=== PATIENT | male | born 2005 | race Caucasian/White ===

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

== ENCOUNTER 2024-01-02 14:35 | Emergency (ER) | payer SELFPAY ==
--- OUTSIDE RECORDS SUMMARY | 2024-01-02 14:38 | XMS REPORT | Continuity of Care Document ---
Author Name Unknown Address [address] [place] [address] [facility] thconnect Address [address] [place] [address] Care Team Providers Care Sheet Rock Layer Name Role Phone KOMAL CAREY Primary Care Physician Unav ailKOMAL De Los Santos Attending Clinician Unavail able Lab, Hakan Collins Attending Clinician Unavailable Komal Carey MD Attending Clinician [phone] Alana Francis PA-C Attending Clinician [phone] ALANA FRANCIS Attending Clinician Unavailab AMBAR Darden Attending Clinician Unavail able Payers Payer Name Policy Type Policy Number Effective Date Expirati on Date Source [facility] [id number] 2020 00:00:00 [place] [place] [id number] 2020 00:00:00 Allergies, Adverse Reactions, Alerts Allergy Name Allergy Type Status Severity Reaction(s) Onset Date Inactive Date Treating Clinician Comments Source NO KNOWN ALLERGIE S Drug Class Active [facility] Encounters Start Date/Time End Date/Time Encounter Type Admission Type Attending Clinicians Care Facility Care Department Encounter ID Source 2021-05-29 13:00:00 2021-05-29 13:00:00 Outpatient KOMAL GARCIA [facility] [id number] [facility] 2020-08-29 08:23:48 2020-08-29 08:38:48 Label Remover Visit Lab, Hakan Collins [facility] [id number] 2020-08-29 08:30:00 2020-08-29 08:30:00 Outpatient R [facility] [id number] [facility] 2020-08-27 00:00:00 2020-08-27 00:00:00 Komal Noel [facility] [id number] 2020-05-13 09:20:00 2020-05-13 09:20:00 Outpatient KOMAL GARCIA [facility] [id number] [facility] 2020-05-06 13:31:12 2020-05-06 15:33:09 Office Visit Alana Francis [facility] [id number] 2020-05-06 13:50:00 2020-05-06 13:50:00 Outpatient ALANA SWEENEY [facility] [id number] [facility] 2020-04-23 00:00:00 2020-04-23 00:00:00 Outpatient Peña GREER [facility] [id number] [facility] 2020-04-22 13:20:00 2020-04-22 13:20:00 Outpatient Peña GREER [facility] [id number] [facility] 2020-03-19 08:40:00 2020-03-19 08:40:00 Outpatient KOMAL GARCIA [facility] [id number] [facility]
[2024-01-02 18:02] LABS: Absolute Eosinophils 0.1 K/uL (0-0.5); Absolute Lymphocytes (CBC) 1.9 K/uL (0.7-4.9); Absolute Monocytes 0.5 K/uL (0.1-1.3); Absolute Neutrophil 4.6 K/uL (1.8-8.0); Basophils % 0.4 % (0-1.3); Eosinophils % 0.9 % (0-4.4); Hematocrit 41.5 % (39.6-49.0); Hemoglobin 14.4 g/dL (13.6-17.9); Lymphocytes % 26.1 % (15.3-44.8); MCHC 34.7 g/dL (32.0-36.0); MCV 86.5 fL (80-100); MPV 7.6 fL (7.6-11.3); Monocytes % 7.1 % (3.3-12.3); Neutrophils % 65.5 % (41.7-73.7); Nucleated Red Blood Cells % 0.1 % (0-0); Platelets 267 thou/uL (152-406); RBC Red Blood Cell Count 4.79 M/uL (4.33-5.43); Red Cell Distribution Width 13.5 % (12.1-15.2)
[2024-01-02 18:21] LABS: Anion Gap 6.6 mEq/L (5.0-15.0); Magnesium 2.3 mg/dL (1.6-2.4); Potassium 3.6 mEq/L (3.5-5.1); Troponin High Sensitivity 3.8 pg/mL (<58.9)
--- NOTE | 2024-01-02 18:47 | RAD REPORT ---
EXAM DESCRIPTION: CT - Head Brain Wo Cont - 01/02/2024 6:23 pm CLINICAL HISTORY: HEADACHE COMPARISON: Head angio dated 01/02/2024 TECHNIQUE: Noncontrast head CT images were obtained without IV contrast. Multiplanar reformats were generated and reviewed. All CT scans are performed using dose optimization technique as appropriate and may include automated exposure control or mA/KV adjustment according to patient size. FINDINGS: No intracranial hemorrhage, mass, or edema. Midline structures are unremarkable. Normal ventricular caliber for age. Estrada-white matter differentiation is preserved, without evidence of acute infarct. No abnormal extra- axial fluid collections. Mastoid air cells and visualized portions of the paranasal sinuses are clear. No acute bony findings. IMPRESSION: No evidence of an acute intracranial process.
[2024-01-02] MEDS ORDERED: DIPHENHYDRAMINE 50 MG/ML VIAL ONE (18:52)
[2024-01-02] MEDS ORDERED: METOCLOPRAMIDE 10 MG/2mL INJ ONE (18:52)
[2024-01-02] MEDS ORDERED: NA CHLORIDE 0.9% 1,000 ML ONE (18:52)
--- NOTE | 2024-01-02 18:53 | RAD REPORT ---
EXAM DESCRIPTION: CT - Head angio - 01/02/2024 6:24 pm CLINICAL HISTORY: MIGRAINE, FAMILY HX OF ANURYSYM COMPARISON: Head Brain Wo Cont dated 01/02/2024 TECHNIQUE: Axial CT angiography images of the head was performed with multiplanar and maximum intens ity projection reconstructions. Images performed following intravenous administration of iodinated c ontrast. All CT scans are performed using dose optimization technique as appropriate and may include automated exposure control or mA/KV adjustment according to patient size. FINDINGS: No evidence of large vessel occlusion. No evidence of aneurysm or dissection flap is detec russell. No flow-limiting stenosis or vascular malformation identified. Antegrade flow is seen in the vertebral arteries. The vertebral arteries are codominant. The visualized dural venous sinuses are grossly patent. IMPRESSION: No evidence of large vessel occlusion or flow-limiting stenosis.
[2024-01-02] MEDS ORDERED: KETOROLAC 30 MG/ML INJ ONE (19:23)
--- NOTE | 2024-01-02 20:15 | ER ---
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 Coronavirus screen: headache. Ebola Screen: Patient denies travel to an Ebola-affected area in the 21 days before illness onset. Initial Sepsis Screen: Does the patient meet any 2 criteria? No. Patient's initial sepsis screen is negative. Does the patient have a suspected source of infection? No. Patient's initial sepsis screen is negative. Risk Assessment: Do you want to hurt yourself or someone else? Patient reports no desire to harm self or others. Onset of symptoms was December 2023. 15:09 Acuity: LISETTE 3 aa5 15:09 Method Of Arrival: Ambulatory aa5 Historical: - Allergies: 15:10 No Known Allergies; aa5 - PMHx: 15:09 angina pectoris; Bipolar disorder; kidney disease; aa5 - Immunization history:: Adult Immunizations unknown. - Infectious Disease History:: Denies. - Social history:: Smoking status: Reported history of juuling and/or vaping. Screenin:16 [facility] ED Fall Risk Assessment (Adult) History of falling in the last 3 months, hb including since admission No falls in past 3 months (0 pts) Confusion or Disorientation No (0 pts) Intoxicated or Sedated No (0 pts) Impaired Gait No (0 pts) Mobility Assist Device Used No (0 pt) Altered Elimination No (0 pt) Score/Fall Risk Level 0 - 2 = Low Risk Oriented to surroundings, Maintained a safe environment, Educated pt \T\ family on fall prevention, incl call for assistance when getting out of bed. Abuse screen: Denies threats or abuse. Denies injuries from another. Nutritional screening: No deficits noted. Tuberculosis screening: No symptoms or risk factors identified. Assessment: 17:30 General: Appears in no apparent distress. Behavior is calm, cooperative. Pain: Pain hb currently is 6 out of 10 on a pain scale. Neuro: Level of Consciousness is awake, alert, obeys commands, Oriented to person, place, time, situation, Reports headache. Cardiovascular: Patient's skin is warm and dry. Respiratory: Respiratory effort is even, unlabored, Respiratory pattern is regular, symmetrical. GI: No signs and/or symptoms were reported involving the gastrointestinal system. : No signs and/or symptoms were reported regarding the genitourinary system. EENT: No signs and/or symptoms were reported regarding the EENT system. Derm: Skin is pink, warm \T\ dry. Musculoskeletal: No signs and/or symptoms reported regarding the musculoskeletal system. 18:16 Reassessment: Patient appears in no apparent distress at this time. Patient and/or hb family updated on plan of care and expected duration. Pain level reassessed. Patient is alert, oriented x 3, equal unlabored respirations, skin warm/dry/pink. 19:05 Reassessment: Patient and/or family updated on plan of care and expected duration. Pain pc2 level reassessed. Patient is alert, oriented x 3, equal unlabored respirations, skin warm/dry/pink. Pain: Pain currently is 7 out of 10 on a pain scale. Neuro: Level of Consciousness is awake, alert, obeys commands, Oriented to person, place, time, situation, Reports headache frontal area. 19:05 Cardiovascular: Patient's skin is warm and dry. Respiratory: Airway is patent pc2 Respiratory effort is even, unlabored, Respiratory pattern is regular, symmetrical. GI: No signs and/or symptoms were reported involving the gastrointestinal system. : No signs and/or symptoms were reported regarding the genitourinary system. EENT: No signs and/or symptoms were reported regarding the EENT system. Derm: Skin is pink, warm \T\ dry. Musculoskeletal: No signs and/or symptoms reported regarding the musculoskeletal system. 20:30 Reassessment: Patient and/or family updated on plan of care and expected duration. Pain pc2 level reassessed. Patient states feeling better. Patient states symptoms have improved. Pain: Pain currently is 1 out of 10 on a pain scale. Vital Signs: 15:09 BP 137 / 83; Pulse 73; Resp 16 S; Temp 97.5(TE); Pulse Ox 100% on R/A; Weight 77.11 kg aa5 (R); Height 6 ft. 0 in. (R); 20:31 BP 124 / 81; Pulse 70; Resp 16; Pulse Ox 100% on R/A; pc2 15:09 Body Mass Index 23.06 (77.11 kg, 182.88 cm) - Percentile 53.0 % aa5 ED Course: 14:39 Patient arrived in ED. ra3 15:08 Arm band placed on. aa5 15:10 Triage completed. aa5 16:24 Brian Rodriguez PA is PHCP. cp 16:24 Lucy Corrales MD is Attending Physician. cp 17:26 Lucy Corrales MD is Attending Physician. sd2 17:54 Sofia Gutiérrez, KAMILA is Primary Nurse. hb 18:01 Inserted saline lock: 20 gauge in right antecubital area, using aseptic technique. cc6 Blood collected. Flushed with 10 mL NS. 18:16 Patient has correct armband on for positive identification. Bed in low position. Call hb light in reach. Provided Education on: tests, result times. 18:16 No provider procedures requiring assistance completed. hb 18:25 CT Head Brain wo Cont In Process Unspecified. EDMS 18:26 Head angio In Process Unspecified. EDMS 19:10 Attending Physician role handed off by Lucy Corrales MD rt 19:10 Michael Theodore MD is Attending Physician. rt 20:15 Johnathon Ham MD is Referral Physician. rt 20:31 IV discontinued, intact, bleeding controlled, No redness/swelling at site. Pressure pc2 dressing applied. Administered Medications: 19:04 Drug: metoCLOPramide IVP 10 mg IVP once; over 1 to 2 minutes Route: IVP; Site: right hb antecubital; 19:31 Follow up: Response: No adverse reaction pc2 19:04 Drug: diphenhydrAMINE IVP 25 mg IVP once Route: IVP; Site: right antecubital; hb 19:31 Follow up: Response: No adverse reaction pc2 19:04 Drug: NS 0.9% IV 1000 ml IV at 1 bolus Per protocol; 1000 mL bolus Route: IV; Rate: 1 hb bolus; Site: right antecubital; 20:22 Follow up: Response: No adverse reaction; IV Status: Infusion continued; IV Intake: pc2 1000ml 19:31 Drug: Ketorolac IVP 15 mg IVP once Route: IVP; Site: right antecubital; pc2 20:23 Follow up: Response: No adverse reaction; Pain is decreased pc2 Medication: 18:16 VIS not applicable for this client. hb Intake: 20:22 IV: 1000ml; Total: 1000ml. pc2 Outcome: 20:15 Discharge ordered by . rt 20:31 Discharged to home ambulatory, with family, pc2 20:31 Condition: stable 20:31 Discharge instructions given to patient, Instructed on discharge instructions, follow up and referral plans. medication usage, Demonstrated understanding of instructions, follow-up care, medications, Prescriptions given X 1, 20:31 Patient left the ED. pc2 Signatures: Dispatcher [employer] EDMS Tracee Bo, RN RN aa5 Brian Rodriguez PA PA cp Baxter, Heather, RN RN Lucy Corrales MD MD sd2 Michael Theodore MD MD rt Laura Kirk ra3 Lacie Velasquez, RN RN pc2 Isabel Enriquez cc6
--- NOTE | 2024-01-02 20:15 | EDPHYS ---
Physician Documentation [facility] Name: Kong David Age: 18 yrs Sex: Male : 2005 Arrival Date: 01/02/2024 Time: 14:35 Bed 11 Private MD: ED Physician Michael Theodore HPI: 01/01 18:55 This 18 yrs old Male presents to ER via Ambulatory with complaints of Migraine x2days. sd2 18:55 18-year-old male presents with chief complaint of headache for the past 2 days. He sd2 reports a history of headaches in the past that are usually relieved with mrox-[id number]-[id number] medications such as Excedrin. He reports that he works at the [employer] and has been working outside in the heat but has been hydrating extremely well without improvement of his symptoms. He has never been seen or worked up for his headaches in the past but has a strong family history on his mother side of migraines as well as aneurysms which is what he is now concerned about. He does endorse some associated nausea. Denies photophobia or phonophobia. His headache is mostly located to the top of his head and he states it radiates down the back of his neck intermittently.. Historical: - Allergies: 15:10 No Known Allergies; aa5 - PMHx: 15:09 angina pectoris; Bipolar disorder; kidney disease; aa5 - Immunization history:: Adult Immunizations unknown. - Infectious Disease History:: Denies. - Social history:: Smoking status: Reported history of juuling and/or vaping. ROS: 18:55 Constitutional: Negative for fever, chills, and weight loss, Eyes: Negative for injury, sd2 pain, redness, and discharge, Cardiovascular: Negative for chest pain, palpitations, and edema, Respiratory: Negative for shortness of breath, cough, wheezing. Abdomen/GI: Negative for abdominal pain, nausea, vomiting, diarrhea. MS/Extremity: Negative for injury and deformity, Skin: Negative for injury, rash, and discoloration, Neuro: Positive for headache. Negative for numbness and tingling. Exam: 18:55 Constitutional: This is a well developed, well nourished patient who is awake, alert, sd2 and in no acute distress. Head/Face: Normocephalic, atraumatic. Eyes: EOMI, normal conjunctiva bilaterally Chest/axilla: Normal chest wall appearance and motion. Nontender with no deformity. Cardiovascular: Regular rate and rhythm with a normal S1 and S2. No gallops, murmurs, or rubs. 2+ distal pulses. Respiratory: Lungs have equal breath sounds bilaterally, clear to auscultation and percussion. No rales, rhonchi or wheezes noted. No increased work of breathing, no retractions or nasal flaring. Abdomen/GI: Soft, non-tender, with normal bowel sounds. No guarding or rebound. No evidence of tenderness throughout. Skin: Warm, dry with normal turgor. Normal color with no rashes, no lesions, and no evidence of cellulitis. MS/ Extremity: Pulses equal, no cyanosis. Neurovascular intact. Full, normal range of motion. Neuro: Awake and alert, GCS 15, oriented to person, place, time, and situation. Cranial nerves II-XII grossly intact. Motor strength 5/5 in all extremities. Sensory grossly intact. Cerebellar exam normal. Normal gait. Psych: Awake, alert, with orientation to person, place and time. Behavior, mood, and affect are within normal limits. Vital Signs: 15:09 BP 137 / 83; Pulse 73; Resp 16 S; Temp 97.5(TE); Pulse Ox 100% on R/A; Weight 77.11 kg aa5 (R); Height 6 ft. 0 in. (R); 20:31 BP 124 / 81; Pulse 70; Resp 16; Pulse Ox 100% on R/A; pc2 15:09 Body Mass Index 23.06 (77.11 kg, 182.88 cm) - Percentile 53.0 % aa5 MDM: 16:25 Patient medically screened. cp 18:55 Differential Diagnosis tension SKY, migraine SKY, aneurysm, ICH among others. Data sd2 reviewed: vital signs, nurses notes, lab test result(s), radiologic studies. I considered the following discharge prescriptions or medication management in the emergency department Medications were administered in the Emergency Department. See MAR. Historians other than the Patient: Spouse/Significant Other: Guru at . Counseling: I had a detailed discussion with the patient and/or guardian regarding the historical points, exam findings, and any diagnostic results supporting the discharge/admit diagnosis, lab results, radiology results, the need for outpatient follow up, to return to the emergency department if symptoms worsen or persist or if there are any questions or concerns that arise at home. ED course: CTA head with no signs of aneurysm at this time. No focal neuro deficits on exam. SKY meds given. Pending re-evaluation with improvement for disposition home. Advised follow up with PCP and neurology. . 20:15 ED course: Assumed care at shift change. Patient with significantly improving headache. rt Reviewed results of CT scans, unremarkable. Stable for outpatient care, return precautions discussed.. 01/01 16:25 Order name: Basic Metabolic Panel; Complete Time: 18:45 cp 01/01 16:25 Order name: CBC with Diff; Complete Time: 18:45 cp 01/01 16:25 Order name: Magnesium; Complete Time: 18:45 cp 01/01 16:25 Order name: Troponin HS; Complete Time: 18:45 cp 01/01 16:25 Order name: CK; Complete Time: 18:45 cp 01/01 17:46 Order name: CT Head Brain wo Cont; Complete Time: 18:54 sd2 01/01 18:01 Order name: Head angio; Complete Time: 18:54 EDMS 01/01 16:25 Order name: EKG - Nurse/Tech; Complete Time: 18:17 cp 01/01 16:25 Order name: IV Saline Lock; Complete Time: 18:01 cp 01/01 16:25 Order name: Labs collected and sent; Complete Time: 18:01 cp 01/01 16:25 Order name: O2 Per Protocol; Complete Time: 17:54 cp 01/01 16:25 Order name: O2 Sat Monitoring; Complete Time: 17:54 cp Administered Medications: 19:04 Drug: metoCLOPramide IVP 10 mg IVP once; over 1 to 2 minutes Route: IVP; Site: right hb antecubital; 19:31 Follow up: Response: No adverse reaction pc2 19:04 Drug: diphenhydrAMINE IVP 25 mg IVP once Route: IVP; Site: right antecubital; hb 19:31 Follow up: Response: No adverse reaction pc2 19:04 Drug: NS 0.9% IV 1000 ml IV at 1 bolus Per protocol; 1000 mL bolus Route: IV; Rate: 1 hb bolus; Site: right antecubital; 20:22 Follow up: Response: No adverse reaction; IV Status: Infusion continued; IV Intake: pc2 1000ml 19:31 Drug: Ketorolac IVP 15 mg IVP once Route: IVP; Site: right antecubital; pc2 20:23 Follow up: Response: No adverse reaction; Pain is decreased pc2 Disposition Summary: 01/02/24 20:15 Discharge Ordered Problem: new rt Symptoms: have improved rt Condition: Stable rt Diagnosis - Headache rt Followup: sd2 - With: Private Physician - When: 2 - 3 days - Reason: Recheck today's complaints, Continuance of care, Re-evaluation by your physician Followup: sd2 - With: Johnathon Ham MD - When: 2 - 3 days - Reason: Recheck today's complaints, Continuance of care Discharge Instructions: - Discharge Summary Sheet sd2 - General Headache Without Cause sd2 - Migraine Headache sd2 Forms: - Medication Reconciliation Form rt - Antibiotic Education rt - Prescription Opioid Use rt - Patient Portal Instructions rt - Leadership Thank You Letter rt Prescriptions: - Fioricet 50-300-40 mg Oral capsule - take 1 capsule ORAL route every 6 hours As needed; 15 capsule; Refills: 0, sd2 Product Selection Permitted Signatures: Dispatcher [employer] EDMS Tracee Bo, RN RN aa5 Brian Rodriguez PA PA cp Sofia Gutiérrez, KAMILA RN hb Lucy Corrales MD MD sd2 Michael Theodore MD MD rt Lacie Velasquez, RN RN pc2 Corrections: (The following items were deleted from the chart) 16:26 16:25 BASIC METABOLIC PANEL+C.LAB.BRZ ordered. EDMS EDMS 16:26 16:25 CBC+H.LAB.BRZ ordered. EDMS EDMS 16:26 16:25 MAGNESIUM+C.LAB.BRZ ordered. EDMS EDMS 16:26 16:25 Troponin High Sensitivity+C.LAB.BRZ ordered. EDMS EDMS 16:26 16:25 CREATINE PHOSPHOKINASE+C.LAB.BRZ ordered. EDMS EDMS 17:47 17:47 Head Brain Wo Cont+CT.RAD.BRZ ordered. EDMS EDMS
[2024-01-02 20:51] VITALS: TEMP 97.5; O2SAT 100
[2024-01-02 20:53] VITALS: BP 124/81
== END 2024-01-02 20:31 | disposition home or self-care (01) ==
LOC: ER 14:35
DX: R51.9 Headache, unspecified (principal)
CPT/HCPCS: 36415; 70450; 70496; 80048; 82550; 82565; 83735; 84484; 85025; 96361; 96374; 96375; 99284; J1200; J2765; J7030; Q9967

== ENCOUNTER 2024-03-22 00:53 | Emergency (ER) | payer SELFPAY ==
--- OUTSIDE RECORDS SUMMARY | 2024-03-22 00:55 | XMS REPORT | Continuity of Care Document ---
Author Name Unknown Address [address] [facility] [address] [facility] [address] [place] [address] [facility] thconnect Address [address] [facility] [address] [place] [address] Care Team Providers Care Clerk Television Production Name Role Phone KOMAL CAREY Primary Care Physician Unav ailable Naty Woodall MA Attending Clinician Unavailable KOMAL CAREY Attending Clinician Unavail able Lab, Lkj Pedi Attending Clinician Unavailable Komal Carey MD Attending Clinician [phone] Alana Francis PA-C Attending Clinician [phone] ALANA FRANCIS Attending Clinician UnavailAMBAR Leon Attending Clinician Unavail able Payers Payer Name Policy Type Policy Number Effective Date Expirati on Date Source [facility] [id number] 2020 00:00:00 [place] [id number] 2020 00:00:00 Allergies, Adverse Reactions, Alerts Allergy Name Allergy Type Status Severity Reaction(s) Onset Date Inactive Date Treating Clinician Comments Source NO KNOWN ALLERGIE S Drug Class Active [facility] [place] Social History Social Habit Start Date Stop Date Quantity Comments Source Gender identity Kwame rick Corley [facility] Sexual orientation [facility] [place] [facility] Smoking Status Start Date Stop Date Source Tobacco smoking consumption unknown [facility] Encounters Start Date/Time End Date/Time Encounter Type Admission Type Attending Clinicians Care Facility Care Department Encounter ID Source 2024-01-04 00:00:00 2024-01-04 09:11:33 Telephone Naty Woodall [facility] [id number] Rene Corley [facility] 2024-01-03 00:00:00 2024-01-03 11:33:01 Telephone Naty Woodall [facility] [id number] [facility] 2021-05-29 13:00:00 2021-05-29 13:00:00 Outpatient KOMAL GARCIA [facility] [id number] [facility] 2020-08-29 08:23:48 2020-08-29 08:38:48 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, Hakan Collins [facility] [id number] 2020-08-29 08:30:00 2020-08-29 08:30:00 Outpatient R [facility] [id number] [facility] 2020-08-27 00:00:00 2020-08-27 00:00:00 Telephone Komal Carey [facility] [id number] 2020-05-13 09:20:00 2020-05-13 09:20:00 Outpatient KOMAL GARCIA [facility] [id number] [facility] 2020-05-06 13:31:12 2020-05-06 15:33:09 Office Visit Alana Francis [facility] [id number] 2020-05-06 13:50:00 2020-05-06 13:50:00 Outpatient R SMOTOH ALANA [facility] [id number] [facility] 2020-04-23 00:00:00 2020-04-23 00:00:00 Outpatient R AMBAR GREER [facility] [id number] [facility] 2020-04-22 13:20:00 2020-04-22 13:20:00 Outpatient Peña GREERAMBAR [facility] [id number] [facility] 2020-03-19 08:40:00 2020-03-19 08:40:00 Outpatient R TRICIA CAREYINA [facility] [id number] [facility] Notes Date/Time Note Provider Source 2024-01-04 09:11:52 [facility]2024-08-27 09:09:58 I called patient for his missed appointment and it went straight to and was full so unable to leave . [id number]01Upcoming Encounters Health Maintenance Due Date Last Done Comments Varicella Vaccines (1 of 2 - 13+ 2-dose series) 2017 HPV Vaccines (1 - Male 3-dos e series) 2019 DTaP/Tdap/Td Vaccines (1 - Tdap) 2023 Hepatitis B Vaccines (1 of 3 - 19+ 3-dose series) 2023 Influenza Vaccine (#1) 2024 HIB Vaccines Aged Out No longer eligi ble based on patient's age to complete this topic Hepatitis A Vaccines Aged Out No long er eligible based on patient's age to complete this topic IPV Vaccines Aged Out No longer eligi ble based on patient's age to complete this topic Meningococcal Vaccine Aged Out No jer edmundo eligible based on patient's age to complete this topic Pneumococcal Vaccine: Pediat rics (0 to 5 Years) and At-Risk Patients (6 to 64 Years) Aged Out No longer eligible b ased on patient's age to complete this topic Rotavirus Vaccines Aged Out No longer eligible based on patient's age to complete this topic [facility] [id number] 11:33:01* [facility] [id number] 11:27:29 I attempted to contact the patient twice to confirm their hospital discharge follow-up appointment. I left a voicemail requesting the patient to return our call. Andria Corley
--- NOTE | 2024-03-22 01:06 | EDPHYS ---
Physician Documentation [facility] Name: Kong David Age: 18 yrs Sex: Male : 2005 Arrival Date: 03/22/2024 Time: 00:53 Bed 6 Private MD: ED Physician Jared Packer HPI: 03/22 01:00 This 18 yrs old Male presents to ER via Unassigned with complaints of Bug in sp4 ear. 23:29 18-year-old male presents with a complaint of possible foreign body in the right ear. sp4 Patient states may be an insect.. Historical: - Allergies: 01:04 No Known Allergies; vc1 - PMHx: 01:04 angina pectoris; Bipolar disorder; kidney disease; vc1 - PSHx: 01:04 None; vc1 - Immunization history:: Adult Immunizations unknown. - Infectious Disease History:: Denies. - Social history:: Smoking status: Patient reports the use of cigarette tobacco products, smokes 1.5 packs per day. - Family history:: not pertinent. ROS: 23:29 Constitutional: Negative for fever, chills, and weight loss, positive for right ear sp4 discomfort or possible right ear foreign body 23:29 All other systems are negative, Exam: 23:29 Constitutional: This is a well developed, well nourished patient who is awake, alert, sp4 and in no acute distress. Head/Face: Normocephalic, atraumatic. Eyes: Pupils equal round and reactive to light, extra-ocular motions intact. Lids and lashes normal. Conjunctiva and sclera are not injected. Cornea within normal limits. Periorbital areas with no swelling, redness, or edema. ENT: Nares patent. No nasal discharge, no septal abnormalities noted. Tympanic membranes are normal and external auditory canals are clear. Oropharynx with no redness, swelling, or masses, exudates, or evidence of obstruction, uvula midline. Mucous membranes moist. Neck: Trachea midline, no thyromegaly or masses palpated, and no cervical lymphadenopathy. Supple, full range of motion without nuchal rigidity, or vertebral point tenderness. Chest/axilla: Normal chest wall appearance and motion. Nontender with no deformity. No lesions are appreciated. Cardiovascular: Regular rate and rhythm with a normal S1 and S2. No gallops, murmurs, or rubs. Normal PMI, no JVD. No pulse deficits. Respiratory: Lungs have equal breath sounds bilaterally, clear to auscultation and percussion. No rales, rhonchi or wheezes noted. No increased work of breathing, no retractions or nasal flaring. Abdomen/GI: Soft, with normal bowel sounds. No distension or tympany. No guarding or rebound. No evidence of tenderness throughout. Back: No spinal tenderness. No costovertebral tenderness. Skin: Warm, dry with normal turgor. Normal color with no rashes, no lesions, and no evidence of cellulitis. MS/ Extremity: Pulses equal, no cyanosis. Neurovascular intact. Full, normal range of motion. Neuro: Awake and alert, GCS 15, oriented to person, place, time, and situation. Cranial nerves II-XII grossly intact. Motor strength 5/5 in all extremities. Sensory grossly intact. Psych: Awake, alert, with orientation to person, place and time. Behavior, mood, and affect are within normal limits Vital Signs: 01:03 BP 124 / 87; Pulse 82; Resp 14; Pulse Ox 100% ; Weight 79.38 kg; Height 6 ft. 1 in. ; vc1 01:03 Body Mass Index 23.09 (79.38 kg, 185.42 cm) - Percentile 51.7 % vc1 Roland Coma Score: 23:29 Eye Response: spontaneous(4). Motor Response: obeys commands(6). Verbal Response: sp4 oriented(5). Total: 15. MDM: 01:02 Medical Screening Exam initiated sp4 23:31 Differential diagnosis: otitis media, otitis externa, foreign body, acute otalgia. Data sp4 reviewed: vital signs, nurses notes. Consideration of Admission/Observation Escalation of care including admission/observation considered. ED course: Normal Right ear exam - stable for discharge home. Administered Medications: No medications were administered Disposition Summary: 03/22/24 01:05 Discharge Ordered Notes: Location: Home sp4 Problem: new sp4 Symptoms: have improved sp4 Condition: Stable sp4 Diagnosis - Right ear discomfort , Acute Right ear pain sp4 Followup: sp4 - With: Private Physician - When: As needed - Reason: Recheck today's complaints Discharge Instructions: - Discharge Summary Sheet sp4 - Medical Screening Exam sp4 Forms: - Patient Portal Instructions sp4 Signatures: Anali Silver, RN RN vc1 Jared Packer MD MD sp4
--- NOTE | 2024-03-22 01:06 | ER ---
Nurse's Notes [facility] Name: Kong David Age: 18 yrs Sex: Male : 2005 Arrival Date: 03/22/2024 Time: 00:53 Bed 6 Private MD: Diagnosis: Right ear discomfort , Acute Right ear pain Presentation: 03/22 01:03 Chief complaint: Patient states: felt like there was water in my ear, I used a q tip vc1 and it felt like something was fighting against the q tip. Coronavirus screen: Client denies travel out of the [place] in the last 14 days. At this time, the client does not indicate any symptoms associated with coronavirus-19. Ebola Screen: Patient negative for fever greater than or equal to 101.5 degrees Fahrenheit, and additional compatible Ebola Virus Disease symptoms Patient denies exposure to infectious person. Patient denies travel to an Ebola-affected area in the 21 days before illness onset. No symptoms or risks identified at this time. Initial Sepsis Screen: Does the patient meet any 2 criteria? No. Patient's initial sepsis screen is negative. Does the patient have a suspected source of infection? No. Patient's initial sepsis screen is negative. Risk Assessment: Do you want to hurt yourself or someone else? Patient reports no desire to harm self or others. Onset of symptoms was March 22, 2024. 01:03 Method Of Arrival: Ambulatory vc1 01:03 Acuity: LISETTE 4 vc1 Triage Assessment: 01:05 General: Appears in no apparent distress. uncomfortable, slender, well groomed, well vc1 developed, well nourished, Behavior is cooperative, anxious. Pain: Denies pain. EENT: Reports something moving in right ear. Neuro: Level of Consciousness is awake, alert, obeys commands, Oriented to person, place, time, situation, Appropriate for age. Cardiovascular: Capillary refill < 3 seconds Patient's skin is warm and dry. Respiratory: Airway is patent Respiratory effort is even, unlabored, Respiratory pattern is regular, symmetrical. GI: No deficits noted. No signs and/or symptoms were reported involving the gastrointestinal system. : No deficits noted. No signs and/or symptoms were reported regarding the genitourinary system. Derm: Skin is intact, is healthy with good turgor, Skin is dry, Skin is normal, Skin temperature is warm. Musculoskeletal: Circulation, motion, and sensation intact. Range of motion: intact in all extremities. Historical: - Allergies: 01:04 No Known Allergies; vc1 - PMHx: 01:04 angina pectoris; Bipolar disorder; kidney disease; vc1 - PSHx: 01:04 None; vc1 - Immunization history:: Adult Immunizations unknown. - Infectious Disease History:: Denies. - Social history:: Smoking status: Patient reports the use of cigarette tobacco products, smokes 1.5 packs per day. - Family history:: not pertinent. Screenin:02 [facility] ED Fall Risk Assessment (Adult) History of falling in the last 3 months, al5 including since admission No falls in past 3 months (0 pts) Confusion or Disorientation No (0 pts) Intoxicated or Sedated No (0 pts) Impaired Gait No (0 pts) Mobility Assist Device Used No (0 pt) Altered Elimination No (0 pt) Score/Fall Risk Level 0 - 2 = Low Risk Oriented to surroundings, Maintained a safe environment, Hourly rounding (assess needs \T\ fall precautionary measures) done. Abuse screen: Denies threats or abuse. Denies injuries from another. Nutritional screening: No deficits noted. Tuberculosis screening: No symptoms or risk factors identified. Assessment: 01:04 General: Appears in no apparent distress. Behavior is calm, cooperative. Pain: Denies al5 pain. Neuro: Level of Consciousness is awake, alert, obeys commands, Oriented to person, place, time, situation. Cardiovascular: Capillary refill < 3 seconds Patient's skin is warm and dry. Respiratory: Airway is patent Respiratory effort is even, unlabored, Respiratory pattern is regular, symmetrical. GI: No signs and/or symptoms were reported involving the gastrointestinal system. : No signs and/or symptoms were reported regarding the genitourinary system. EENT: Reports something in his R ear.. Derm: Skin is intact, is healthy with good turgor, Skin is pink, warm \T\ dry. normal. Musculoskeletal: No signs and/or symptoms reported regarding the musculoskeletal system. Vital Signs: 01:03 BP 124 / 87; Pulse 82; Resp 14; Pulse Ox 100% ; Weight 79.38 kg; Height 6 ft. 1 in. ; vc1 01:03 Body Mass Index 23.09 (79.38 kg, 185.42 cm) - Percentile 51.7 % vc1 Roland Coma Score: 23:29 Eye Response: spontaneous(4). Motor Response: obeys commands(6). Verbal Response: sp4 oriented(5). Total: 15. ED Course: 00:54 Patient arrived in ED. ra3 00:59 Jared Packer MD is Attending Physician. sp4 01:02 Jackie Christian, RN is Primary Nurse. al5 01:02 Patient has correct armband on for positive identification. Bed in low position. Call al5 light in reach. Side rails up X 1. Provided Education on: plan of care. 01:03 No provider procedures requiring assistance completed. Patient did not have IV access al5 during this emergency room visit. 01:04 Triage completed. vc1 01:05 Arm band placed on right wrist. vc1 Administered Medications: No medications were administered Medication: 01:02 VIS not applicable for this client. al5 Outcome: 01:05 Discharge ordered by . sp4 01:14 Discharged to home ambulatory, with significant other, al5 01:14 Condition: good 01:14 Discharge instructions given to patient, Instructed on discharge instructions, Demonstrated understanding of instructions, 01:14 Patient left the ED. al5 Signatures: Anali Silver RN RN vc1 Jared Packer MD MD sp4 Laura Kirk ra3 Jackie Christian RN RN al5
[2024-03-22 01:31] VITALS: BP 124/87; O2SAT 100
== END 2024-03-22 01:14 | disposition home or self-care (01) ==
LOC: ER 00:53
DX: H92.01 Otalgia, right ear (principal)

== ENCOUNTER 2025-03-09 10:44 | Emergency (ER) | payer SELFPAY ==
--- NOTE | 2025-03-09 11:10 | ER ---
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 Bleeding ll1 controlled. Dog not up to date on vaccinations. Coronavirus screen: Client denies travel out of the [place] in the last 14 days. At this time, the client does not indicate any symptoms associated with coronavirus-19. Ebola Screen: Patient denies travel to an Ebola-affected area in the 21 days before illness onset. Initial Sepsis Screen: Does the patient meet any 2 criteria? No. Patient's initial sepsis screen is negative. Does the patient have a suspected source of infection? No. Patient's initial sepsis screen is negative. Risk Assessment: Do you want to hurt yourself or someone else? Patient reports no desire to harm self or others. Onset of symptoms was March 09, 2025. 10:51 Method Of Arrival: Ambulatory ll1 10:51 Acuity: LISETTE 4 ll1 Triage Assessment: 10:51 Bite description: bite sustained to right hand is superficial, from animal, was ll1 sustained 30-60 minutes ago. by a dog, animal information: vaccination(s) is not up to date. General: Appears uncomfortable, Behavior is calm, cooperative, appropriate for age. Pain: Complains of pain in right hand Quality of pain is described as aching, Pain began 1 hour ago. Derm: Reports dog bite R hand. Musculoskeletal: Circulation, motion, and sensation intact. Capillary refill < 3 seconds, in right fingers. Tenderness present in right hand. Injury Description: Bite sustained to right hand. Historical: - Allergies: 10:50 Petrolatum; ll1 - PMHx: 10:50 angina pectoris; Bipolar disorder; kidney disease; ll1 - PSHx: 10:50 throat surgery as a child (kidney disease); ll1 - Immunization history:: Adult Immunizations up to date, Last tetanus immunization: unknown. - Infectious Disease History:: Denies. - Social history:: Smoking status: Patient reports the use of cigarette tobacco products, denies chronic smoking, but will smoke occasionally, Reported history of juuling and/or vaping. Screenin:07 [facility] ED Fall Risk Assessment (Adult) History of falling in the last 3 months, ll1 including since admission No falls in past 3 months (0 pts) Confusion or Disorientation No (0 pts) Intoxicated or Sedated No (0 pts) Impaired Gait No (0 pts) Mobility Assist Device Used No (0 pt) Altered Elimination No (0 pt) Score/Fall Risk Level 0 - 2 = Low Risk Maintained a safe environment, Hourly rounding (assess needs \T\ fall precautionary measures) done. Abuse screen: Denies threats or abuse. Nutritional screening: No deficits noted. Tuberculosis screening: No symptoms or risk factors identified. Assessment: 11:08 Reassessment: No changes from previously documented assessment. Patient and/or family ll1 updated on plan of care and expected duration. Pain level reassessed. 11:17 Reassessment: No changes from previously documented assessment. Patient and/or family ll1 updated on plan of care and expected duration. Pain level reassessed. Patient is alert, oriented x 3, equal unlabored respirations, skin warm/dry/pink. 11:17 Derm: Skin is intact, is healthy with good turgor, Skin is pink, warm \T\ dry. ll1 11:18 Reassessment: not cooperating with veterinarian laboratory animal care Alli on scene. ll1 Vital Signs: 10:51 BP 126 / 75; Pulse 109; Resp 16; Temp 97.4; Pulse Ox 100% ; Weight 77.11 kg; Height 6 ll1 ft. 0 in. ; Pain 5/10; 11:18 Pulse 100; Resp 16; Pulse Ox 100% on R/A; Pain 0/10; ll1 10:51 Body Mass Index 23.06 (77.11 kg, 182.88 cm) ll1 10:51 Pain Scale: Adult ll1 11:18 Pain Scale: Adult ll1 ED Course: 10:47 Patient arrived in ED. cj3 10:47 Tutu Loera FNP-C is PHCP. dr5 10:47 Finn Vasquez MD is Attending Physician. dr5 10:51 Arm band placed on. ll1 10:53 Triage completed. ll1 10:59 Patient has correct armband on for positive identification. Provided Education on: ER ll1 procedures and process. [facility] animal control contacted. Sending a deputy. 11:05 Blaire Huang, RN is Primary Nurse. ll1 11:07 Patient did not have IV access during this emergency room visit. Wound care: to dog ll1 bite R hand located on right hand was cleaned with with Hibiclens and saline. 11:17 No provider procedures requiring assistance completed. Patient did not have IV access ll1 during this emergency room visit. Administered Medications: No medications were administered Medication: 11:18 VIS not applicable for this client. ll1 Outcome: 11:09 Discharge ordered by . dr5 11:18 Discharged to home ambulatory, ll1 11:18 Condition: stable 11:18 Discharge instructions given to patient, Instructed on discharge instructions, follow up and referral plans. medication usage, Demonstrated understanding of instructions, follow-up care, medications, Prescriptions given X 1, 11:19 Patient left the ED. ll1 Signatures: Blaire Huang, RN RN ll1 Tutu Loera, AUTOMATIC TELLER MACHINE SERVICER-C AUTOMATIC TELLER MACHINE SERVICER-Cdr5 Dinora Ferreira 3
--- NOTE | 2025-03-09 11:10 | EDPHYS ---
Physician Documentation [facility] Name: Kong David Age: 19 yrs Sex: Male : 2005 Arrival Date: 03/09/2025 Time: 10:44 Bed 12 Private MD: ED Physician Finn Vasquez HPI: 03/09 11:00 This 19 yrs old Male presents to ER via Ambulatory with complaints of Dog dr5 Bite. 11:00 The patient was bitten on the dorsum of right hand. by a dog, at home. Onset: The dr5 symptoms/episode began/occurred acutely. Patient is a 19-year-old male with history of bipolar disorder and kidney disease coming in with dog bite from girlfriend's dog at home. Patient states that he does not know if the dog is vaccinated. Please report has not been made.. Historical: - Allergies: 10:50 Petrolatum; ll1 - PMHx: 10:50 angina pectoris; Bipolar disorder; kidney disease; ll1 - PSHx: 10:50 throat surgery as a child (kidney disease); ll1 - Immunization history:: Adult Immunizations up to date, Last tetanus immunization: unknown. - Infectious Disease History:: Denies. - Social history:: Smoking status: Patient reports the use of cigarette tobacco products, denies chronic smoking, but will smoke occasionally, Reported history of juuling and/or vaping. ROS: 11:00 Constitutional: as per hpi dr5 Exam: 11:26 Constitutional: This is a well developed, well nourished patient who is awake, alert, dr5 and in no acute distress. Head/Face: Normocephalic, atraumatic. Eyes: Pupils equal round and reactive to light, extra-ocular motions intact. Lids and lashes normal. Conjunctiva and sclera are non-icteric and not injected. Cornea within normal limits. Periorbital areas with no swelling, redness, or edema. Chest/axilla: Normal chest wall appearance and motion. Nontender with no deformity. No lesions are appreciated. Cardiovascular: Regular rate and rhythm with a normal S1 and S2. Normal PMI, no JVD. No pulse deficits. Respiratory: Lungs have equal breath sounds bilaterally, clear to auscultation. No rales, rhonchi or wheezes noted. No increased work of breathing, no retractions or nasal flaring. Abdomen/GI: Soft, non-tender, non-distended Back: No spinal tenderness. No costovertebral tenderness. Full range of motion. MS/ Extremity: Pulses equal, no cyanosis. Neurovascular intact. Full, normal range of motion. Neuro: Awake and alert, GCS 15, oriented to person, place, time, and situation. Cranial nerves II-XII grossly intact. Motor strength 5/5 in all extremities. Sensory grossly intact. Cerebellar exam normal. Normal gait. 11:26 Skin: injury, puncture(s), that are superficial, of the dorsum of right hand, Vital Signs: 10:51 BP 126 / 75; Pulse 109; Resp 16; Temp 97.4; Pulse Ox 100% ; Weight 77.11 kg; Height 6 ll1 ft. 0 in. ; Pain 5/10; 11:18 Pulse 100; Resp 16; Pulse Ox 100% on R/A; Pain 0/10; ll1 10:51 Body Mass Index 23.06 (77.11 kg, 182.88 cm) ll1 10:51 Pain Scale: Adult ll1 11:18 Pain Scale: Adult ll1 MDM: 10:54 Medical Screening Exam initiated dr5 11:26 Differential diagnosis: superficial laceration, rabies, cellulitis. Rabies Status: no dr5 history of rabies immunization. Data reviewed: vital signs, nurses notes. Consideration of Admission/Observation Escalation of care including admission/observation considered. Escalation considered patient found to have fever. I considered the following discharge prescriptions or medication management in the emergency department I discussed and recommended Over The Counter medications. Test considered but Not performed: X-ray: X-ray considered but patient does not have decreased range of motion or any significant swelling. Care significantly affected by the following Social Determinants of Health: Poor access to healthcare and/or lack of insurance, Poor access to transportation, Problems related to employment. Counseling: I had a detailed discussion with the patient and/or guardian regarding the historical points, exam findings, and any diagnostic results supporting the discharge/admit diagnosis, the presence of at least one elevated blood pressure reading (>120/80) during this emergency department visit, the need for outpatient follow up, for definitive care, a family practitioner, to return to the emergency department if symptoms worsen or persist or if there are any questions or concerns that arise at home. Special discussion: I discussed with the patient/guardian in detail that at this point there is no indication for admission to the hospital. It is understood, however, that if the symptoms persist or worsen the patient needs to return immediately for re-evaluation. Based on the history and exam findings, there is no indication for further emergent testing or inpatient evaluation. I discussed with the patient/guardian the need to see the primary care provider for further evaluation of the symptoms. ED course: Animal control contacted for report. Augmentin prescribed for infection. All question answered. Strict ER precaution given. 03/09 10:58 Order name: Wound Care; Complete Time: 11:05 dr5 Administered Medications: No medications were administered Disposition: 13:44 Co-signature as Attending Physician, Finn Vasquez MD I reviewed the patient's care rn provided by the Advanced Practice Provider and agree with the diagnosis and treatment plan. Disposition Summary: 03/09/25 11:09 Discharge Ordered Notes: Location: Home dr5 Condition: Stable dr5 Diagnosis - Open bite of right hand, initial encounter dr5 Followup: dr5 - With: Emergency Department - When: As needed - Reason: Worsening of condition Followup: dr5 - With: Private Physician - When: As needed - Reason: Worsening of condition Discharge Instructions: - Discharge Summary Sheet dr5 - Animal Bite, Adult dr5 Forms: - Medication Reconciliation Form dr5 - Antibiotic Education dr5 - Patient Portal Instructions dr5 - Leadership Thank You Letter dr5 Prescriptions: - Augmentin 875-125 mg Oral Tablet - take 1 tablet ORAL route every 12 hours for 10 days; 20 tablet; Refills: 0, dr5 Product Selection Permitted Signatures: Finn Vasquez MD MD rn Lewis, Lynsay, RN RN ll1 Tutu Loera, SONNY-C GARBAGE TRUCK DRIVER-Cdr5
[2025-03-09 11:23] VITALS: BP 126/75; TEMP 97.4; O2SAT 100
== END 2025-03-09 11:19 | disposition home or self-care (01) ==
LOC: ER 10:44
DX: S61.431A Puncture wound without foreign body of right hand, initial encounter (principal); W54.0XXA Bitten by dog, initial encounter
CPT/HCPCS: 99283